=== PATIENT | female | born 1960 | race African-American/Black ===

== ENCOUNTER → 2016-06-23 | Outpatient (CLI) | payer OTHER ==
[~2016-06-23] VITALS: Ht 175.3 cm; Wt 103.1 kg
[~2016-06-23] MED LIST: ALEVE220 M1 PO; AMOXICILLIN 50500 M1 PO; ASPIR 8181 M1 PO; ASPIRIN EC325 M1 PO; ATORVASTATIN CA80 MG PO; CRESTOR PO; CRESTOR40 MG PO; CYCLOBENZAPRINE5 MG PO; FISH OIL 1,001000 M2 PO; FLEXERIL PO; HYDROCODON-ACE1 EAC7 PO; IBUPROFEN 800800 MG PO; LASIX 20 MG TAB20 MG PO; MEDROL DOSPAK21 TAB PO; METOPROLOL SUCC50 MG PO; NAPROSYN500 MG PO; NEXIUM 40 MG CA40 M1 PO; NOHOMEMEDICATIONS; NORCO 10-325 T1 EACH PO; NORCO 5-325 TA1 EACH PO; NORFLEX100 MG PO; OMEPRAZOLE 20 M20 M1 PO; OMEPRAZOLE40 MG PO; PERCOCET 10-321 EACH PO; PERCOCET 5-3251 EACH PO; POTASSIUM CHLO20 ME1 PO; PREDNISONE 10 M10 MG PO; PRILOSEC40 MG PO; VITAMIN D 5050000 I1 PO; VITAMIN D32000 UNIT PO
--- NOTE | ~2016-06-23 | HPC ---
[facility] [place] [address] PAIN MANAGEMENT CONSULTATION Name: ASHOK GRIGGS Room #: REG RITU Miguelina#: [id number] Admission: 06/23/16 Attend Phys: Tommy Guthrie DO Discharge: Date of : 58 Report #: [id number] THIS REPORT FOR: //name// CC: Pankaj Guthrie DATE OF SERVICE: 06/23/2016 The patient is a 56-year-old female seen one time in consultation back in February. Diagnosed with chronic pain syndrome, myofascial pain, cervical radiculopathy, elevated BMI (33.1 kilograms per meter squared), nicotine habituation, general debility and complex medication management. I suggested at that time: 1. Nicotine cessation. 2. Increased range of motion, physical activity, yoga and/or lizette chi. 3. Consideration for nonsteroidal anti-inflammatory medication use though I did defer to her wet trimmer in this regard. Did start the patient on tizanidine 4 mg t.i.d. Suggested consideration for a myofascial type agent (Savella or Cymbalta) and strongly recommended against opiate use. We talked about trigger point injections if possible. She is somewhat lost to follow up. Returns to pain clinic today noting she is having significant pain in the right hip and low back. She notes pain radiates on the right leg, has become quite problematic, she rates to "10" on a 0-10 visual analog scale. She has been taking a little hydrocodone from her primary treating physician p.r.n. Flexeril is a prescribed medication though it does not appear she is taking with any regularity. Comorbidities include hypertension for which she takes metoprolol, dyslipidemia for which she takes atorvastatin. PHYSICAL EXAMINATION: Shows 56-year-old female, BMI is 33.5 kilograms per meter squared. Blood pressure is 131/89, pulse 82, respirations 14. She has continued to smoke. She rises from chair using armrest, markedly antalgic gait favoring the right leg. She exhibits multiple pain behaviors including grimacing, moaning and extreme deliberation and hesitation with any and all movement. Again, she favors the right leg. Lumbar flexion is self limited to 70 degrees. She is tender in the SI area bilaterally, exquisitely tender over the right hip. Right hip flexion, lower extremity extension strength is diminished 3/5 versus perhaps 4/5 on the left side. Patellar and Achilles reflexes are preserved. Straight leg raise is nominally positive on the right. Michael test is grossly positive on the right. Passive rotation of the right hip and palpation over the right hip significantly exacerbates pain. ASSESSMENT: Symptomatic sacroiliac joint dysfunction, lumbosacral spondylosis and right hip degenerative joint disease in a patient with multiple [facility] [address] [place] [address] PAIN MANAGEMENT CONSULTATION Name: ASHOK GRIGGS Room #: REG [facility] Miguelina#: [id number] Admission: 06/23/16 Attend Phys: Tommy Guthrie DO Discharge: Date of : 58 Report #: [id number] comorbidities including myofascial pain, chronic pain syndrome, hypertension, nicotine habituation and elevated body mass index. RECOMMENDATION: 1. Right hip joint injection under fluoroscopy today. 2. We will get x-rays of the right hip and pelvis. 3. Consider right SI joint injection under fluoroscopy if indicated. 4. Again, strongly recommend smoking cessation, increased range of motion, stretching, i.e., lizette chi and/or yoga. Consider nonsteroidal anti-inflammatory medication use, but again, we will defer to her treating physicians. I think she would benefit from initiation of a selective serotonin reuptake and norepinephrine reuptake inhibiting agent including Cymbalta or Savella. Thank you for allowing me to participate in the patient's care. PROCEDURE NOTE: Right hip joint injection under fluoroscopy. INDICATION: Right hip DJD. PROCEDURE: After written informed consent was obtained, the patient was taken to the fluoroscopy suite and placed in the supine position. Skin overlying the right hip was cleansed with ChloraPrep. Skin wheal with Xylocaine was raised. A 20-gauge needle was placed to contact the proximal aspect of femur adjacent to the acetabulum. Initial aspiration showed spread within the muscle group outside the joint. Needle was repositioned. Second injection showed good spread within the joint. This was followed with 40 mg triamcinolone plus 2 mL of 0.5% preservative-free bupivacaine. She was told to watch the area for signs of infection including swelling and/or fever, chills. I am pleased to note the patient noted subjective improvement of pain on discharge, rating her pain, which had been at "10" on a 0-10 visual analog scale that about a 2/10. We will see the patient back next week after x-rays of the right hip and pelvis. The patient was seen for prolonged visit today. Approximately, 30 minutes were spent initially with the patient reviewing interval health history and acute changes including primarily right leg and SI pain. <ELECTRONICALLY SIGNED> By: Tommy Guthrie DO 06/28/16 1607 1222 1434 Tommy Guthrie DO /nt
[2016-06-23 09:10] VITALS: BP 131/89
== END ==
LOC: PAIN 07:08
DX: M16.11 Unilateral primary osteoarthritis, right hip (principal); G89.4 Chronic pain syndrome; I10 Essential (primary) hypertension; E78.5 Hyperlipidemia, unspecified; M53.3 Sacrococcygeal disorders, not elsewhere classified; M47.27 Other spondylosis with radiculopathy, lumbosacral region; F17.210 Nicotine dependence, cigarettes, uncomplicated

== ENCOUNTER → 2016-07-07 | Outpatient (CLI) | payer OTHER ==
[~2016-07-07] VITALS: Ht 175.3 cm; Wt 101.6 kg
--- NOTE | ~2016-07-07 | HPC ---
[facility] [place] [address] PAIN MANAGEMENT CONSULTATION Name: ASHOK GRIGGS Room #: REG RITU Miguelina#: [id number] Admission: 07/07/16 Attend Phys: Tommy Guthrie DO Discharge: Date of : 58 Report #: [id number] THIS REPORT FOR: //name// CC: Sandy Guthrie The patient is a 56-year-old female, prior seen in the pain clinic on 06/23/2015. She was diagnosed with myofascial pain component, history of cervical radiculopathy, right hip DJD, lumbosacral spondylosis, and complex medication management. At last visit, she received right hip injection under fluoroscopy. This afforded very good relief for a short period of time. I did order x-rays of the right hip and pelvis, which were obtained on 07/03/2016. Really no dramatic stenosis is noted. We had recommended Hector-chi. Discontinuing tobacco. Tizanidine for spasm and talked about an SI injection today versus epidural injection, depending on clinical exam at today's visit. She returns to pain clinic today. Again, noting the hip joint injection did afford good relief; however, pain continues to be problematic in the right leg. She has a markedly antalgic gait, states she has numbness in the leg, tingling, burning, and sharp pain. She rates it at 6/10, exacerbated with standing and walking, some relief with medications and when she lies recumbent. PHYSICAL EXAMINATION: Shows a 56-year-old female, BMI is 33.1 kilograms per meter squared. Vital signs are stable as noted in the EMR. Moderately antalgic gait. Positive straight leg raise on the right. Right hip flexion strength is diminished at 3/5. Right lower extremity extension is 4/5, left leg is much stronger at 5/5. Patellar and Achilles reflexes are generally preserved, tender over the right SI with positive Michael test. Skin integument is intact. ASSESSMENT: 1. Symptomatic lumbar radiculopathy by clinical exam. 2. Sacroiliac joint and lumbosacral spondylosis. 3. Right hip degenerative joint disease, fairly nominal by radiographic findings, transient improvement with the steroid injection to her right hip. RECOMMENDATIONS: I have discussed with the patient today. We have elected to move forward with lumbar epidural injection under fluoroscopy at L4-L5. Continue current medications per Dr. Dos Santos. I would like to see her back in about 3 weeks for reevaluation. Thanks you for allowing me to participate in this patient's care. I will keep you abreast of her progress. PROCEDURE NOTE: Lumbar epidural injection under fluoroscopy. DESCRIPTION OF PROCEDURE: After both written and informed consent to include risk of spinal cord damage, increased pain, weakness and dural puncture, the [address] [address] PAIN MANAGEMENT CONSULTATION Name: ASHOK GRIGGS Room #: REG [facility] Miguelina#: [id number] Admission: 07/07/16 Attend Phys: Tommy Guthrie DO Discharge: Date of : 58 Report #: [id number] patient was taken to the fluoroscopy suite, placed in the prone position. After sterile prep and drape, a skin wheal with lidocaine was raised. A 22-gauge epidural Tuohy needle was inserted in the midline at L4-L5 with good loss to resistance. Negative aspiration for cerebrospinal fluid or blood was noted. Then 1 mL of Omnipaque under biplanar fluoroscopy showed good spread within the epidural space. This was followed with 80 mg of triamcinolone plus 1 mL of 1.5% preservative-free Xylocaine, 0.5 mL Xylocaine was then injected to flush the needle; it was removed. The patient was monitored for an appropriate period of time and discharged in good and stable condition. <ELECTRONICALLY SIGNED> By: Tommy Guthrie DO 07/12/16 0729 1225 1609 Tommy Guthrie DO /nt
[2016-07-07 09:09] VITALS: BP 113/79
== END | disposition home or self-care (01) ==
LOC: PAIN 07:13
DX: M47.897 Other spondylosis, lumbosacral region (principal); G89.29 Other chronic pain; M53.3 Sacrococcygeal disorders, not elsewhere classified; M16.11 Unilateral primary osteoarthritis, right hip; F17.200 Nicotine dependence, unspecified, uncomplicated

== ENCOUNTER → 2016-12-08 | Outpatient (CLI) | payer OTHER ==
[~2016-12-08] VITALS: Ht 175.3 cm; Wt 98.4 kg
[~2016-12-08] MED LIST changes: +HYDROCODONE-APA1 TA1 PO
--- NOTE | ~2016-12-08 | HPC ---
[facility] [address] [place] [address] PAIN MANAGEMENT CONSULTATION Name: ASHOK GRIGGS Room #: REG RITU Miguelina#: [id number] Admission: 12/08/16 Attend Phys: Tommy Guthrie DO Discharge: Date of : 58 Report #: [id number] THIS REPORT FOR: //name// CC: Pankaj Guthrie The patient is a very pleasant 56-year-old female. She was prior seen back in June for symptomatic lumbar radiculopathy, given a single epidural injection L4-L5 with 75% improvement of pain for several months. The patient notes pain has gradually begun to recur without antecedent trauma and overuse, pain is primarily right leg. PHYSICAL EXAMINATION: Shows a markedly positive straight leg raise on the right, decreased plantar flexion, hip flexion strength, markedly antalgic gait. Achilles reflex is diminished. Diffuse tenderness across the low back. Denies bowel or bladder continence changes, no other myelopathic symptoms noted. The patient notes symptoms are quite similar to what she fell prior to the injection in June. She is desirous of repeating the injection today. ASSESSMENT: Symptomatic lumbar radiculopathy by clinical exam and history. RECOMMENDATION: 1. Hydrocodone 7.5/325, dispensed 45 tablets, one tablet q. 4-6 hours as needed for pain. 2. Continue meloxicam as prescribed by automotive general manager physician. 3. Epidural injection under fluoroscopy today (midline L4-L5). Follow up in 3 weeks for reevaluation. If she has again good relief, i.e., 75% or more, we will certainly have her cancel that followup appointment, we will see her simply on an as needed basis. PROCEDURE: Lumbar epidural injection under fluoroscopy. PROCEDURE NOTE: After both written and informed consent to include risk of spinal cord damage, increased pain, weakness and dural puncture, the patient was taken to the fluoroscopy suite, placed in the prone position. After sterile prep and drape, a skin wheal with lidocaine was raised. A 22-gauge epidural Tuohy needle was inserted in the midline at L4-L5 with good loss to resistance. Negative aspiration for cerebrospinal fluid or blood was noted. Then 1 mL of Omnipaque under biplanar fluoroscopy showed good spread within the epidural space. This was followed with 80 mg of triamcinolone plus 1 mL of 1.5% preservative-free Xylocaine, 0.5 mL Xylocaine was then injected to flush the [address] [address] PAIN MANAGEMENT CONSULTATION Name: ASHOK GRIGGS Room #: REG CL Miguelina#: [id number] Admission: 12/08/16 Attend Phys: Tommy Guthrie DO Discharge: Date of : 58 Report #: [id number] needle; it was removed. The patient was monitored for an appropriate period of time and discharged in good and stable condition. By: 1211 1302 Tommy Guthrie DO /harriet
[2016-12-08 11:39] VITALS: BP 132/76
== END | disposition home or self-care (01) ==
LOC: PAIN 10:25
DX: M54.16 Radiculopathy, lumbar region (principal); F17.200 Nicotine dependence, unspecified, uncomplicated

== ENCOUNTER 2017-11-29 20:16 | Emergency (ER) | payer OTHER ==
[~2017-11-29] VITALS: Ht 175.3 cm; Wt 95.3 kg
--- NOTE | ~2017-11-29 | EKG ---
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 Hand: daphne nesbitt : 1960 Requested By: Catrina Louie Order Number: [id number] MD: Geovanny Carson Measurements Intervals [place] Rate: 80 P: 38 ID: [id number] QRS: 20 QRSD: 97 T: 20 QT: 371 QTc: 428 Interpretive Statements Sinus rhythm Probable left atrial enlargement Compared to ECG 01/21/2015 14:09:34 Atrial premature complex(es) no longer present Fusion complex(es) no longer present Electronically Signed On 11-29-2017 21:56:17 CDT by Geovanny Carson [email or web address] <ELECTRONICALLY SIGNED> By: Geovanny Carson MD 11/29/17 2156 31 31 Geovanny Carson MD /[facility]
[2017-11-29 20:45] LABS: ABSOLUTE NEUTROPHILS 3.7 thou/uL (1.4-8.2); BASOPHILS 0.3 % (0.0-2.0); EOSINOPHILS 3.5 % (0.0-3.0); HEMATOCRIT 41.7 % (37.0-47.0); HEMOGLOBIN 13.9 gm/dL (12.0-15.0); LYMPHOCYTES 43.8 % (24.0-44.0); MCH 30.9 pg (26.0-34.0); MCHC 33.4 g/dL (28.0-37.0); MCV 92.5 fL (80.0-100.0); MONOCYTES 4.9 % (1.0-8.0); PLATELET COUNT 178 thou/uL (150-400); POLYS 47.5 % (36.0-66.0); RBC 4.51 mil/uL (4.20-5.00); RDW 14.2 % (10.5-14.5); WBC 7.8 thou/uL (4.0-11.0)
[2017-11-29 20:53] LABS: ANION GAP 9 mmol/L (7-16); BUN 13 mg/dL (7-18); CALCIUM 9.2 mg/dL (8.5-10.1); CHLORIDE 110 mmol/L (98-107); CO2 26 mmol/L (21-32); GLUCOSE 146 mg/dL (74-106); POTASSIUM 3.6 mmol/L (3.5-5.1); SODIUM 145 mmol/L (136-145)
[2017-11-29] MEDS ORDERED: VALIUM5 MG PO (20:59)
[2017-11-29 21:02] LABS: TROPONIN-I < 0.04 ng/mL (<0.06)
[2017-11-29 21:12] VITALS: BP 132/78
== END 2017-11-29 21:26 | disposition home or self-care (01) ==
LOC: ER 20:16
PROVIDERS: Emergency Medicine
DX: G25.3 Myoclonus (principal); M54.12 Radiculopathy, cervical region; I10 Essential (primary) hypertension; K21.9 Gastro-esophageal reflux disease without esophagitis; E78.00 Pure hypercholesterolemia, unspecified; F17.210 Nicotine dependence, cigarettes, uncomplicated; Z88.2 Allergy status to sulfonamides

== ENCOUNTER 2018-05-04 11:32 | Emergency (ER) | payer OTHER ==
[~2018-05-04] VITALS: Ht 175.3 cm; Wt 89.8 kg
--- NOTE | ~2018-05-04 | EKG ---
[address] [address] ELECTROCARDIOGRAM REPORT Name: ASHOK PUGH Room #: [facility]P [facility] [id number] Admission: 05/04/18 Attend Phys: Discharge: 05/04/18 Date of : 58 Report #: [id number] THIS REPORT FOR: //name// [facility] ED Test Date: 2018-05-04 Test Time: 11:41:07 Pat Name: ASHOK KUMAR Department: Room: Gender: F Drug Regulatory Affairs Specialist: [facility] : 1960 Requested By: Denton Nuno Order Number: [id number] MD: Gevoanny Carson Measurements Intervals [place] Rate: 71 P: 45 [place]: 142 QRS: 17 QRSD: 92 T: 27 QT: 368 QTc: 400 Interpretive Statements Sinus arrhythmia Ventricular premature complex Compared to ECG 11/29/2017 20:32:13 Ventricular premature complex(es) now present Sinus rhythm no longer present Electronically Signed On 05-05-2018 20:39:11 TELEMARKETER by Geovanny Carson [email or web address] <ELECTRONICALLY SIGNED> By: Geovanny Carson MD 05/05/182038 114 114 Geovanny Carson MD /EPI
[~2018-05-04 11:32] MED LIST changes: +MOBIC15 MG PO; +VALIUM5 MG PO
[2018-05-04] MEDS ORDERED: NORCO 10-325 T1 EACH PO (11:48)
[2018-05-04 12:07] LABS: ABSOLUTE NEUTROPHILS 5.6 thou/uL (1.4-8.2); BASOPHILS 1.1 % (0.0-2.0); EOSINOPHILS 1.1 % (0.0-3.0); HEMATOCRIT 46.6 % (37.0-47.0); HEMOGLOBIN 15.8 gm/dL (12.0-15.0); LYMPHOCYTES 25.7 % (24.0-44.0); MCH 31.1 pg (26.0-34.0); MCV 91.5 fL (80.0-100.0); MONOCYTES 3.6 % (1.0-8.0); PLATELET COUNT 201 thou/uL (150-400); POLYS 68.5 % (36.0-66.0); RBC 5.09 mil/uL (4.20-5.00); RDW 14.2 % (10.5-14.5); WBC 8.1 thou/uL (4.0-11.0)
[2018-05-04] MEDS ORDERED: UNICOMPLEX M TA1 TA1 PO (12:15)
[2018-05-04 12:16] LABS: ANION GAP 5 mmol/L (7-16); BUN 17 mg/dL (7-18); CALCIUM 9.7 mg/dL (8.5-10.1); CHLORIDE 106 mmol/L (98-107); CO2 28 mmol/L (21-32); CREATININE 1.1 mg/dL (0.6-1.0); GLUCOSE 100 mg/dL (74-106); POTASSIUM 3.7 mmol/L (3.5-5.1); SODIUM 139 mmol/L (136-145)
[2018-05-04 12:25] LABS: TROPONIN-I <0.06 ng/mL (<0.06)
[2018-05-04 13:17] VITALS: BP 143/81
[2018-05-04 13:31] LABS: LARGE PLATELETS FEW
== END 2018-05-04 13:22 | disposition home or self-care (01) ==
LOC: ER 11:32
PROVIDERS: Physician Assistant
DX: I48.91 Unspecified atrial fibrillation (principal); R00.2 Palpitations; I10 Essential (primary) hypertension; E78.00 Pure hypercholesterolemia, unspecified; K21.9 Gastro-esophageal reflux disease without esophagitis; Z90.710 Acquired absence of both cervix and uterus; F17.210 Nicotine dependence, cigarettes, uncomplicated; Z88.2 Allergy status to sulfonamides

== ENCOUNTER → 2018-12-09 | Outpatient (CLI) | payer OTHER ==
[~2018-12-09] MED LIST changes: +UNICOMPLEX M TA1 TA1 PO
== END ==
LOC: BC 09:11
DX: Z12.31 Encounter for screening mammogram for malignant neoplasm of breast (principal)

== ENCOUNTER → 2019-03-10 | Outpatient (CLI) | payer OTHER ==
--- NOTE | 2019-03-10 10:47 | 2DMMODE ---
[facility] [place] [address] 2 D/M-MODE ECHOCARDIOGRAM Name: GRIGGS ASHOK KUMAR Room #: REG CL [facility]#: [id number] Admission: 03/10/19 Attend Phys: Pankaj Diaz MD Discharge: Date of : 58 Report #: [id number] THIS REPORT FOR: //name// APPROVED REPORT Study performed: 03/10/2019 10:11:14 EXAM: Comprehensive 2D, Doppler, and color-flow Echocardiogram Patient Location: Out-Patient Status: routine BSA: 2.07 HR: 71 bpm BP: 120/74 mmHg Rhythm: NSR Other Information Study Quality: Good Indications CAD Hx: Afib, HTN, HLP. 2D Dimensions RVDd: 34.15 mm IVSd: 9.03 (7-11mm) LVOT Diam: 21.02 (18-24mm) LVDd: 52.58 mm PWd: 8.99 (7-11mm) Ascending Ao: 34.24 (22-36mm) LVDs: 39.23 (25-40mm) Aortic Root: 31.37 mm Volumes Left Atrial Volume (Systole) Single Plane 4CH: 50.82 mL Single Plane 2CH: 59.27 mL LA ESV Index: 29.00 mL/m2 Aortic Valve AoV Peak Himanshu.: 1.28 m/s AO Peak Gr.: 6.59 mmHg LVOT Max P.38 mmHg LVOT Max V: 0.92 m/s AUDREY Vmax: 2.48 cm2 Mitral Valve E/A Ratio: 1.3 MV Decel. Time: 203.29 ms [facility] [address] [place] [address] 2 D/M-MODE ECHOCARDIOGRAM Name: INDU KUMARGONZALEZPRICILLA Room #: REG CL [facility]#: [id number] Admission: 03/10/19 Attend Phys: Pankaj Diaz MD Discharge: Date of : 58 Report #: [id number] MV E Max Himanshu.: 0.81 m/s MV A Himanshu.: 0.61 m/s MV PHT: 58.96 ms IVRT: 79.58 ms Pulmonary Valve PV Peak Himanshu.: 0.91 m/s PV Peak Gr.: 3.33 mmHg Pulmonary Vein P Vein S: 0.45 m/s P Vein A: 0.28 m/s P Vein D: 0.34 m/s P Vein A Dur.: 100.3 msec P Vein S/D Ratio: 1.32 Tricuspid Valve TR Peak Himanshu.: 2.40 m/s RAP Estimate: 5.00 mmHg TR Peak Gr.: 22.98 mmHg PA Pressure: 28.00 mmHg Left Ventricle The left ventricle is normal size. There is normal left ventricular wall thickness. Left ventricular systolic function is low normal. LVEF is 50%. Moderate diastolic dysfunction is present (pseudonormal filling). Right Ventricle The right ventricle is normal size. The right ventricular systolic function is normal. Atria The left atrium size is normal. The right atrium size is normal. Aortic Valve The aortic valve is normal in structure. No aortic regurgitation is present. There is no aortic valvular stenosis. Mitral Valve The mitral valve is normal in structure. Mild mitral regurgitation. Tricuspid Valve The tricuspid valve is normal in structure. Trace tricuspid regurgitation. Estimated PAP is 25-30mmHg. Pulmonic Valve The pulmonary valve is normal in structure. Trace pulmonic [facility] [address] [place] [address] 2 D/M-MODE ECHOCARDIOGRAM Name: INDU ASHOK KUMAR Room #: REG [facility]#: [id number] Admission: 03/10/19 Attend Phys: Pankaj Diaz MD Discharge: Date of : 58 Report #: [id number] regurgitation. Great Vessels The aortic root is normal in size. The ascending aorta is normal in size. IVC is normal in size and collapses >50% with inspiration. Pericardium There is no pericardial effusion. <Conclusion> The left ventricle is normal size. There is normal left ventricular wall thickness. Left ventricular systolic function is low normal. Moderate diastolic dysfunction is present (pseudonormal filling). The right ventricle is normal size. The left atrium size is normal. The aortic valve is normal in structure. Mild mitral regurgitation. Trace tricuspid regurgitation. Estimated PAP is 25-30mmHg. <ELECTRONICALLY SIGNED> By: Pankaj Diaz MD 03/10/19 1047 46 Pankaj Diaz MD /INF
== END ==
LOC: CV 09:55
DX: I34.0 Nonrheumatic mitral (valve) insufficiency (principal); I25.10 Atherosclerotic heart disease of native coronary artery without angina pectoris; I10 Essential (primary) hypertension; E78.5 Hyperlipidemia, unspecified; I48.91 Unspecified atrial fibrillation

== ENCOUNTER 2019-04-28 10:07 | Emergency (ER) | payer OTHER ==
[~2019-04-28] VITALS: Ht 266.7 cm; Wt 88.5 kg
[2019-04-28 10:55] LABS: ABSOLUTE NEUTROPHILS 1.7 thou/uL (1.4-8.2); BASOPHILS 1.3 % (0.0-2.0); EOSINOPHILS 3.2 % (0.0-3.0); HEMATOCRIT 42.4 % (37.0-47.0); LYMPHOCYTES 43.8 % (24.0-44.0); MCV 90.9 fL (80.0-100.0); MONOCYTES 8.6 % (1.0-8.0); POLYS 43.1 % (36.0-66.0); RBC 4.66 mil/uL (4.20-5.00); WBC 3.8 thou/uL (4.0-11.0)
[2019-04-28 11:05] LABS: ANION GAP 8 mmol/L (7-16); BUN 13 mg/dL (7-18); CALCIUM 9.7 mg/dL (8.5-10.1); CHLORIDE 107 mmol/L (98-107); CO2 25 mmol/L (21-32); CREATININE 0.7 mg/dL (0.6-1.0); GLUCOSE 98 mg/dL (74-106); SODIUM 140 mmol/L (136-145)
[2019-04-28] MEDS ORDERED: LOPRESSOR50 PO (11:08)
[2019-04-28 11:14] LABS: MAGNESIUM 1.9 mg/dL (1.8-2.4); TROPONIN-I <0.06 ng/mL (<0.06)
[2019-04-28 11:51] LABS: PLATELET COUNT 170 thou/uL (150-400)
[2019-04-28 12:01] VITALS: BP 119/68
--- NOTE | 2019-04-29 19:07 | EKG ---
[place] [address] [facility] [place] [address] ELECTROCARDIOGRAM REPORT Name: ASHOK PUGH Room #: DEP Miguelina#: [id number] Admission: 04/28/19 Attend Phys: Discharge: 04/28/19 Date of : 58 Report #: [id number] THIS REPORT FOR: //name// [facility] ED Test Date: 2019-04-28 Test Time: 10:25:36 Pat Name: ASHOK KUMAR Department: Room: Gender: F General Warehouse Associate: [place] : 1960 Requested By: Davy Nguyễn Order Number: [id number] MD: Justin Graves Measurements Intervals [place] Rate: 74 P: 49 [place]: 147 QRS: 21 QRSD: 87 T: 4 QT: 380 QTc: 422 Interpretive Statements Sinus rhythm Ectopic premature complex Compared to ECG 05/04/2018 11:41:07 No significant change was found Electronically Signed On 04-29-2019 19:06:39 SHOP TECH by Justin Graves [email or web address] <ELECTRONICALLY SIGNED> By: Justin Graves MD, [facility] 04/29/19 1906 1025 1025 Justin Graves MD, FACC /EPI
== END 2019-04-28 12:02 | disposition home or self-care (01) ==
LOC: ER 10:07
PROVIDERS: Emergency Medicine
DX: B34.9 Viral infection, unspecified (principal); I11.0 Hypertensive heart disease with heart failure; I50.9 Heart failure, unspecified; E78.00 Pure hypercholesterolemia, unspecified; K21.9 Gastro-esophageal reflux disease without esophagitis; F17.210 Nicotine dependence, cigarettes, uncomplicated; Z90.710 Acquired absence of both cervix and uterus; Z88.2 Allergy status to sulfonamides

== ENCOUNTER → 2019-12-08 | Outpatient (CLI) | payer OTHER ==
[~2019-12-08] MED LIST changes: +LOPRESSOR50 PO
== END ==
LOC: SJCVC 14:46
PROVIDERS: ATTEND Internal Medicine Cardiovascular Disease
DX: I49.9 Cardiac arrhythmia, unspecified (principal); I25.10 Atherosclerotic heart disease of native coronary artery without angina pectoris; I10 Essential (primary) hypertension; E78.00 Pure hypercholesterolemia, unspecified; E78.5 Hyperlipidemia, unspecified; F17.210 Nicotine dependence, cigarettes, uncomplicated; Z79.82 Long term (current) use of aspirin; Z79.899 Other long term (current) drug therapy; Z82.49 Family history of ischemic heart disease and other diseases of the circulatory system

== ENCOUNTER → 2019-12-11 | Outpatient (CLI) | payer OTHER | LOC: BC 12:25 → EDSTATUS 14:57 | PROVIDERS: ATTEND Internal Medicine | DX: Z12.31 Encounter for screening mammogram for malignant neoplasm of breast (principal) ==

== ENCOUNTER 2020-02-02 10:47 | Emergency (ER) | payer OTHER ==
[~2020-02-02] VITALS: Ht 175.3 cm; Wt 104.3 kg
[2020-02-02 10:49] VITALS: BP 134/79
[2020-02-02] MEDS ORDERED: MEDROLDOSEPACK PO (11:16)
== END 2020-02-02 11:36 | disposition home or self-care (01) ==
LOC: ER 10:47
DX: M54.12 Radiculopathy, cervical region (principal); M40.204 Unspecified kyphosis, thoracic region; I11.0 Hypertensive heart disease with heart failure; I50.9 Heart failure, unspecified; K21.9 Gastro-esophageal reflux disease without esophagitis; E78.00 Pure hypercholesterolemia, unspecified; F17.210 Nicotine dependence, cigarettes, uncomplicated; Z90.711 Acquired absence of uterus with remaining cervical stump; Z79.899 Other long term (current) drug therapy; Z79.82 Long term (current) use of aspirin; Z88.2 Allergy status to sulfonamides

== ENCOUNTER → 2020-09-06 | Outpatient (CLI) | payer OTHER ==
[~2020-09-06] MED LIST changes: +MEDROLDOSEPACK PO
== END ==
LOC: SJCVCIMAG 07:45
PROVIDERS: ATTEND Internal Medicine Cardiovascular Disease
DX: I08.1 Rheumatic disorders of both mitral and tricuspid valves (principal); I49.9 Cardiac arrhythmia, unspecified; I25.10 Atherosclerotic heart disease of native coronary artery without angina pectoris; E78.00 Pure hypercholesterolemia, unspecified; I10 Essential (primary) hypertension; K21.9 Gastro-esophageal reflux disease without esophagitis; E78.5 Hyperlipidemia, unspecified; R60.0 Localized edema; F17.210 Nicotine dependence, cigarettes, uncomplicated; Z79.82 Long term (current) use of aspirin; Z79.899 Other long term (current) drug therapy; Z88.2 Allergy status to sulfonamides; Z88.1 Allergy status to other antibiotic agents

== ENCOUNTER → 2020-09-22 | Outpatient (CLI) | payer OTHER | LOC: SJCVCIMAG 08:55 | PROVIDERS: ATTEND Internal Medicine Cardiovascular Disease | DX: R00.0 Tachycardia, unspecified (principal); R06.00 Dyspnea, unspecified; R11.0 Nausea; I25.10 Atherosclerotic heart disease of native coronary artery without angina pectoris; I42.9 Cardiomyopathy, unspecified; E78.00 Pure hypercholesterolemia, unspecified; I10 Essential (primary) hypertension; R60.9 Edema, unspecified; G89.29 Other chronic pain; Z88.8 Allergy status to other drugs, medicaments and biological substances; Z90.710 Acquired absence of both cervix and uterus; Z79.82 Long term (current) use of aspirin; Z79.899 Other long term (current) drug therapy; Z87.891 Personal history of nicotine dependence; Z82.49 Family history of ischemic heart disease and other diseases of the circulatory system ==

== ENCOUNTER → 2020-10-11 | Outpatient (CLI) | payer OTHER | LOC: SJCVC 15:06 | PROVIDERS: ATTEND Internal Medicine Cardiovascular Disease | DX: I25.10 Atherosclerotic heart disease of native coronary artery without angina pectoris (principal); R60.0 Localized edema; E78.5 Hyperlipidemia, unspecified; I10 Essential (primary) hypertension; Z87.891 Personal history of nicotine dependence ==

== ENCOUNTER → 2020-10-20 | Outpatient (CLI) | payer OTHER | LOC: SJCVC 10:47 | PROVIDERS: ATTEND Internal Medicine Cardiovascular Disease | DX: R94.31 Abnormal electrocardiogram [ECG] [EKG] (principal); I49.9 Cardiac arrhythmia, unspecified; I42.9 Cardiomyopathy, unspecified; I25.10 Atherosclerotic heart disease of native coronary artery without angina pectoris; E78.00 Pure hypercholesterolemia, unspecified; I10 Essential (primary) hypertension; R60.9 Edema, unspecified; E78.5 Hyperlipidemia, unspecified; Z90.710 Acquired absence of both cervix and uterus; Z88.2 Allergy status to sulfonamides; Z88.8 Allergy status to other drugs, medicaments and biological substances; Z79.82 Long term (current) use of aspirin; Z79.84 Long term (current) use of oral hypoglycemic drugs; Z79.899 Other long term (current) drug therapy; Z87.891 Personal history of nicotine dependence; Z82.49 Family history of ischemic heart disease and other diseases of the circulatory system ==

== ENCOUNTER → 2020-12-10 | Outpatient (CLI) | payer OTHER | LOC: BC 09:58 | PROVIDERS: ATTEND Internal Medicine Cardiovascular Disease | DX: Z12.31 Encounter for screening mammogram for malignant neoplasm of breast (principal); N63.20 Unspecified lump in the left breast, unspecified quadrant ==

== ENCOUNTER 2020-12-20 13:28 | Emergency (ER) | payer OTHER ==
[~2020-12-20] VITALS: Ht 175.3 cm; Wt 113.4 kg
[2020-12-20 15:25] VITALS: BP 95/66
== END 2020-12-20 15:32 | disposition home or self-care (01) ==
LOC: ER 13:28
DX: S80.212A Abrasion, left knee, initial encounter (principal); S70.212A Abrasion, left hip, initial encounter; S40.212A Abrasion of left shoulder, initial encounter; I11.0 Hypertensive heart disease with heart failure; I50.9 Heart failure, unspecified; E78.00 Pure hypercholesterolemia, unspecified; K21.9 Gastro-esophageal reflux disease without esophagitis; F17.210 Nicotine dependence, cigarettes, uncomplicated; Z79.899 Other long term (current) drug therapy; Z79.82 Long term (current) use of aspirin; Z90.710 Acquired absence of both cervix and uterus; Z88.2 Allergy status to sulfonamides; Z88.1 Allergy status to other antibiotic agents; Y93.89 Activity, other specified; Y92.89 Other specified places as the place of occurrence of the external cause; Y99.8 Other external cause status

== ENCOUNTER 2021-04-11 17:18 | Inpatient (IN) | payer OTHER ==
[~2021-04-11] VITALS: Ht 175.3 cm; Wt 123.5 kg
[2021-04-11] VITALS (7 sets, daily range): BP systolic 95–108; BP diastolic 42–67
[2021-04-11 17:54] LABS: ABSOLUTE NEUTROPHILS 4.6 thou/uL (1.4-8.2); BASOPHILS 1.2 % (0.0-2.0); EOSINOPHILS 1.7 % (0.0-3.0); HEMATOCRIT 44.2 % (37.0-47.0); HEMOGLOBIN 14.2 gm/dL (12.0-15.0); MCH 29.4 pg (26.0-34.0); MCHC 32.1 g/dL (28.0-37.0); MCV 91.3 fL (80.0-100.0); MONOCYTES 6.9 % (1.0-8.0); PLATELET COUNT 208 thou/uL (150-400); POLYS 60.2 % (36.0-66.0); RBC 4.84 mil/uL (4.20-5.00); RDW 14.3 % (10.5-14.5); WBC 7.6 thou/uL (4.0-11.0)
[2021-04-11] MEDS ORDERED: METFORMIN HCL500 M3 PO (17:57)
[2021-04-11] MEDS ORDERED: LIPITOR80 MG PO (17:57)
[2021-04-11] MEDS ORDERED: PREGABALIN75 MG PO (17:58)
[2021-04-11] MEDS ORDERED: JANUVIA100 MG PO (17:58)
[2021-04-11] MEDS ORDERED: HYDROCHLOROTH12.5 M1 PO (17:58)
[2021-04-11 18:06] LABS: CALCIUM 8.9 mg/dL (8.5-10.1); CREATININE 1.6 mg/dL (0.6-1.0); POTASSIUM 3.9 mmol/L (3.5-5.1)
--- NOTE | 2021-04-12 01:11 | NUR ---
PT ALERT AND ORIENTED X4. VSS AFEBRILE. SEE ORTHOSTATICS UPON ADMISSION. LR STARTED AT 100 ML/ HR. DENIED CP. NO C/O DIZZINESS HERE ON FLOOR SO FAR. EXPLAINED FALL PRECAUTIONS. TROPONIN NEGATIVE SO FAR. SR WITH 1'AVB ON MONITOR.
[2021-04-12 03:57] VITALS: BP 119/65
[2021-04-12 04:03] LABS: ANION GAP 9 mmol/L (7-16); BUN 24 mg/dL (7-18); CALCIUM 8.5 mg/dL (8.5-10.1); CHLORIDE 110 mmol/L (98-107); CHOLESTEROL 101 mg/dL (<200); CO2 23 mmol/L (21-32); CREATININE 1.2 mg/dL (0.6-1.0); GLUCOSE 121 mg/dL (74-106); HDL CHOLESTEROL 29 mg/dL (>40); LDL CHOLESTEROL 50 mg/dL (<100); POTASSIUM 4.1 mmol/L (3.5-5.1); SODIUM 142 mmol/L (136-145); TC:HDL 3.5 Ratio (Not establshd); TRIGLYCERIDE 111 mg/dL (<150); VLDL 22 mg/dL (<40)
[2021-04-12 04:06] LABS: GLYCOHEMOGLOBIN (HGB A1C) 6.3 % (4.8-5.6)
[2021-04-12 04:58] LABS: MCH 29.9 pg (26.0-34.0); MCHC 32.4 g/dL (28.0-37.0); MCV 92.4 fL (80.0-100.0); RBC 4.01 mil/uL (4.20-5.00); RDW 14.3 % (10.5-14.5); WBC 6.1 thou/uL (4.0-11.0)
--- NOTE | 2021-04-12 05:14 | NUR ---
PT RESTING QUIETLY. NO S/S DISTRESS. DENIED CP. NO SOA. DR CHEATHAM WILL SEE PT IN AM CONSULT CALLED.
--- NOTE | 2021-04-12 07:15 | EKG ---
[address] [address] ELECTROCARDIOGRAM REPORT Name: ASHOK PUGH Room #: 200-I ADM IN ..#: [id number] Admission: 04/11/21 Attend Phys: Uriah Hernández MD Discharge: Date of : 58 Report #: [id number] [facility] ED Test Date: 2021-04-11 Test Time: 17:21:10 Pat Name: ASHOK KUMAR Department: Room: 200 I Gender: F Assurance Sourcing Manager: EDWIN : 1960 Requested By: Hunter Da Silva Order Number: [id number] MD: Gray Cruz Measurements Intervals [place] Rate: 82 P: 53 [place]: 141 QRS: 25 QRSD: 82 T: 38 QT: 378 QTc: 442 Interpretive Statements Sinus rhythm Abnormal R-wave progression, early transition Baseline wander in lead(s) II,III,aVF Compared to ECG 04/28/2019 10:25:36 No significant changes Electronically Signed On 04-12-2021 7:15:48 CDT by Gray Cruz [email or web address] <ELECTRONICALLY SIGNED> By: Gray Cruz MD, FACC 04/12/21 0715 20 20 Gray Cruz MD, [facility] /EPI
[2021-04-12 08:39] VITALS: BP 104/65
--- NOTE | 2021-04-12 10:56 | 2DMMODE ---
[facility] [place] [address] 2 D/M-MODE ECHOCARDIOGRAM Name: ASHOK PUGH Room #: 200-I ADM IN .R.#: [id number] Admission: 04/11/21 Attend Phys: Uriah Hernández MD Discharge: Date of : 58 Report #: [id number] THIS REPORT FOR: cc: John Figueroa MD, David A. MD Park, Jin S. MD ~ APPROVED REPORT Study performed: 04/12/2021 10:11:42 EXAM: Comprehensive 2D, Doppler, and color-flow Echocardiogram Patient Location: Bedside Room #: 200 Status: routine BSA: 2.33 HR: 83 bpm BP: 104/65 mmHg Rhythm: NSR Other Information Study Quality: Adequate Indications Diabetes Dyspnea CAD Cardiomyopathy Chest Pain Hypertension/HDD Aortic Valve AoV Peak Himanshu.: 1.16 m/s AO Peak Gr.: 5.41 mmHg LVOT Max P.89 mmHg LVOT Max V: 0.99 m/s Pulmonary Valve PV Peak Himanshu.: 0.88 m/s PV Peak Gr.: 3.13 mmHg Left Ventricle The left ventricle is normal size. There is normal LV segmental wall motion. There is normal left ventricular wall thickness. Left ventricular systolic function is normal. The left ventricular ejection fraction is within the normal range. LVEF is 50-55%. Grade II - pseudonormal filling dynamics. [facility] [address] [place] [address] 2 D/M-MODE ECHOCARDIOGRAM Name: ASHOK PUGH Room #: 200-I ADM IN M.R.#: [id number] Admission: 04/11/21 Attend Phys: Uriah Hernández MD Discharge: Date of : 58 Report #: [id number] Right Ventricle The right ventricle is normal size. The right ventricular systolic function is normal. Atria The left atrium size is normal. The right atrium size is normal. Aortic Valve The aortic valve is normal in structure. No aortic regurgitation is present. There is no aortic valvular stenosis. Mitral Valve The mitral valve is normal in structure. Trace mitral regurgitation. No evidence of mitral valve stenosis. Tricuspid Valve The tricuspid valve is normal in structure. There is no tricuspid valve regurgitation noted. Pulmonic Valve The pulmonary valve is normal in structure. There is no pulmonic valvular regurgitation. Great Vessels The aortic root is normal in size. IVC is normal in size and collapses >50% with inspiration. Pericardium There is no pericardial effusion. <Conclusion> The left ventricle is normal size. There is normal left ventricular wall thickness. Left ventricular systolic function is normal. The right ventricle is normal size. The left atrium size is normal. The aortic valve is normal in structure. Trace mitral regurgitation. <ELECTRONICALLY SIGNED> By: Pankaj Diaz MD 04/12/211055 55 55 Pankaj Diaz MD /BARBARA
[2021-04-12 12:21] VITALS: BP 111/56
--- NOTE | 2021-04-12 15:07 | NUR ---
Chart reviewed and case discussed with the care team. Cm role introduced at bedside. Pt is a&ox4 and introduced her dtr Argelia who is at bedside this afternoon. Pt notes she is disabled and her pcp is Dr. John Figueroa. She see Dr. Diaz for cardiology. She is indep with gait and adl's using a quad cane;however she recently had her cane taken. She notes her [employer] insurance has not paid for any dme. Will ask for script for quad cane at dc to help facilitate safe mobility. Provider plus liason notified and she does have a quad cane in stock on site and will f/u with the pt. Pt denies any other dc needs or concerns. Dc anticipated tomorrow.
[2021-04-12 16:11] VITALS: BP 122/60
--- NOTE | 2021-04-12 17:50 | NUR ---
CARE ASSUMED THIS AM, PT ALERT AND ORIENTED X4, COMPLAINS OF INTERMITTMENT CHEST PAIN, 08/25. TILT TRAY DRIVER AWARE. ECHO COMPLETED TODAY. POSSIBLE D/C TOMORROW. PT IS UP AD YOVANY TO BATHROOM. DENIES ANY NEEDS AT MOMENT.
[2021-04-12 19:09] VITALS: BP 110/66
[2021-04-12 22:17] VITALS: BP 110/66
[2021-04-13 03:23] VITALS: BP 127/76
--- NOTE | 2021-04-13 04:15 | NUR ---
ASSUMED PT CARE AT 1900, A&OX4, SR ON TELE, REMAINS CHEST PAIN FREE, ASSESSMENTS CHARTED, MEDS GIVEN PER AUG, PT UPADLIB TO THE BATHROOM IN THE ROOM, COVID SWAB COLLECTED, NO NEEDS AT THIS TIME,POSSIBLE DISCHARGE TODAY, WILL CONTINUE TO MONITOR
[2021-04-13 04:52] LABS: CALCIUM 8.4 mg/dL (8.5-10.1); CREATININE 0.8 mg/dL (0.6-1.0); POTASSIUM 4.4 mmol/L (3.5-5.1)
[2021-04-13 05:07] LABS: HEMATOCRIT 36.4 % (37.0-47.0); HEMOGLOBIN 11.7 gm/dL (12.0-15.0); MCH 29.5 pg (26.0-34.0); MCHC 32.1 g/dL (28.0-37.0); MCV 91.6 fL (80.0-100.0); RBC 3.98 mil/uL (4.20-5.00); RDW 14.4 % (10.5-14.5); WBC 4.3 thou/uL (4.0-11.0)
--- NOTE | 2021-04-13 07:12 | EKG ---
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1960 Requested By: Hunter Da Silva Order Number: [id number] MD: Gray Cruz Measurements Intervals [place] Rate: 75 P: 61 IN: 151 QRS: 41 QRSD: 93 T: 33 QT: 383 QTc: 428 Interpretive Statements Sinus arrhythmia Multiple ventricular premature complexes Compared to ECG 04/11/2021 17:21:10 Ventricular premature complex(es) now present Sinus rhythm no longer present Electronically Signed On 04-13-2021 7:12:22 CDT by Gray Cruz [email or web address] <ELECTRONICALLY SIGNED> By: Gray Cruz MD, [facility] 04/13/21 07 05 05 Gray Cruz MD, [facility] /EPI
[2021-04-13 07:26] VITALS: BP 109/52
[2021-04-13 11:46] VITALS: BP 123/66
[2021-04-13 13:09] VITALS: BP 123/66
[2021-04-13 13:10] VITALS: BP 123/66
[2021-04-13 13:18] VITALS: BP 123/66
--- NOTE | 2021-04-13 13:27 | NUR ---
PATIENT STABLE AND READY FOR DISCHARGE. ORDERS RECIEVED. DISCHARGE PACKET REVIEWED WITH PATIENT, DENIES ANY QUESTIONS OR CONCERNS. AWARE OF FOLLOW UP APPOINTMENT WITH CARDIOLOGY AND DISCHARGE MEDICATIONS. NO NEW SCRIPTS. IV DISCONTINUED. TELEMONITOR OFF. PATIENT WAITING FOR FOR [facility] HOME.
== END 2021-04-13 14:56 | disposition home or self-care (01) | DRG 308 ==
LOC: ER 17:18 → 2N 19:02 → EROBS 19:02 → 2N 22:54
PROVIDERS: Family Medicine; Nurse Practitioner; Nurse Practitioner Family; ADMIT Hospitalist; ATTEND Hospitalist
DX: I48.91 Unspecified atrial fibrillation (principal); N17.0 Acute kidney failure with tubular necrosis; I25.10 Atherosclerotic heart disease of native coronary artery without angina pectoris; I50.9 Heart failure, unspecified; I25.5 Ischemic cardiomyopathy; Z20.822 Contact with and (suspected) exposure to COVID-19; E78.5 Hyperlipidemia, unspecified; K21.9 Gastro-esophageal reflux disease without esophagitis; G89.29 Other chronic pain; M54.9 Dorsalgia, unspecified; I49.3 Ventricular premature depolarization; I11.0 Hypertensive heart disease with heart failure; I95.9 Hypotension, unspecified; E86.0 Dehydration; Z90.710 Acquired absence of both cervix and uterus; Z88.2 Allergy status to sulfonamides; Z83.3 Family history of diabetes mellitus; Z23 Encounter for immunization; Z79.01 Long term (current) use of anticoagulants
CPT/HCPCS: 10081